=== PATIENT | male | born 1980 | race American Indian/Alaskan Native ===

== ENCOUNTER 2017-05-23 02:57 | Emergency (ER) | payer MEDICARE ==
[2017-05-23] MEDS ORDERED: CATAPRES PO ONE (05:07)
[2017-05-23] MEDS ORDERED: TORADOL IM ONE (05:27)
--- NOTE | 2017-05-23 05:32 | Emergency Department Report ---
ED ENT HPI - General Chief complaint: Dental/Oral Stated complaint: ABSCESS/TOOTHACHE Time Seen by Provider: 05/23/17 05:25 Source: patient Mode of arrival: Ambulatory Limitations: No Limitations - History of Present Illness Initial comments: This is a 37-year-old male nontoxic, well nourished in appearance, no acute signs of distress presents to the ED complaining of right-sided tooth pain 2 days. Patient stated this to pains radiating to his right ear but denies any trauma to the region. Denies hearing loss, ear discharge, stiff neck, headache , nausea, vomiting, facial swelling, fever, chills, chest pain or shortness of breath. Patient denies any allergies. Denies past medical history. Discussed pain as 10 out of 10 that is described as aching. MD complaint: tooth pain -: Gradual, days(s) (2) Severity: mild Severity scale (0 -10): 10 Quality: aching Consistency: constant Improves with: none Worsens with: none Context- Dental: history of dental caries, poor dental care Associated Symptoms: toothache. denies: fever, cough, gum swelling, pain with swallowing, sore throat, tinnitus, hearing loss, discharge from ear, rhinorrhea - Related Data Previous Rx's Medication Instructions Recorded Last Taken Type Amoxicillin/K Clav Tab [Augmentin 1 tab PO Q12HR #20 tab 05/23/17 Unknown Rx 875 mg] Ibuprofen [Motrin 600 MG tab] 600 mg PO Q8H PRN #30 tablet 05/23/17 Unknown Rx traMADol [Ultram] 50 mg PO Q6HR PRN #15 tablet 05/23/17 Unknown Rx Allergies Allergy/AdvReac Type Severity Reaction Status Date / Time No Known Allergies Allergy Verified 05/23/17 05:15 ED Dental HPI - General Chief complaint: Dental/Oral Stated complaint: ABSCESS/TOOTHACHE Time Seen by Provider: 05/23/17 05:25 Source: patient Mode of arrival: Ambulatory Limitations: No Limitations - Related Data Previous Rx's Medication Instructions Recorded Last Taken Type Amoxicillin/K Clav Tab [Augmentin 1 tab PO Q12HR #20 tab 05/23/17 Unknown Rx 875 mg] Ibuprofen [Motrin 600 MG tab] 600 mg PO Q8H PRN #30 tablet 05/23/17 Unknown Rx traMADol [Ultram] 50 mg PO Q6HR PRN #15 tablet 05/23/17 Unknown Rx Allergies Allergy/AdvReac Type Severity Reaction Status Date / Time No Known Allergies Allergy Verified 05/23/17 05:15 ED Review of Systems ROS: Stated complaint: ABSCESS/TOOTHACHE Other details as noted in HPI Constitutional: denies: chills, fever Eyes: denies: eye pain, eye discharge, vision change ENT: dental pain. denies: ear pain, throat pain Respiratory: denies: cough, shortness of breath, wheezing Cardiovascular: denies: chest pain, palpitations Endocrine: no symptoms reported Gastrointestinal: denies: abdominal pain, nausea, diarrhea Genitourinary: denies: urgency, dysuria Musculoskeletal: denies: back pain, joint swelling, arthralgia Skin: denies: rash, lesions Neurological: denies: headache, weakness, paresthesias Psychiatric: denies: anxiety, depression Hematological/Lymphatic: denies: easy bleeding, easy bruising ED Past Medical Hx - Past Medical History Previous Medical History?: No - Surgical History Past Surgical History?: No - Social History Smoking Status: Current Every Day Smoker Substance Use Type: Alcohol - Medications Home Medications: Home Medications Medication Instructions Recorded Confirmed Last Taken Type Amoxicillin/K Clav Tab [Augmentin 1 tab PO Q12HR #20 tab 05/23/17 Unknown Rx 875 mg] Ibuprofen [Motrin 600 MG tab] 600 mg PO Q8H PRN #30 tablet 05/23/17 Unknown Rx traMADol [Ultram] 50 mg PO Q6HR PRN #15 tablet 05/23/17 Unknown Rx ED Physical Exam - General Limitations: No Limitations General appearance: alert, in no apparent distress - Head Head exam: Present: atraumatic, normocephalic, normal inspection - Eye Eye exam: Present: normal appearance, PERRL, EOMI. Absent: scleral icterus, conjunctival injection, nystagmus, periorbital swelling, periorbital tenderness Pupils: Present: normal accommodation - ENT ENT exam: Present: normal exam, normal orophraynx, mucous membranes moist, TM's normal bilaterally, normal external ear exam - Expanded ENT Exam Expanded Ear exam: Present: normal external inspection Mouth exam: Present: normal external inspection, tongue normal. Absent: drooling, trismus, muffled voice, tongue elevation, laceration Teeth exam: Present: dental caries, fractured tooth #, dental tenderness #, gingival enlargement, other (No facial swelling,. No abscess or swelling ntoed.) 1 - Fractured, Dental Tenderness Throat exam: Positive: normal inspection. Negative: tonsillar erythema, tonsillomegaly, tonsillar exudate, R peritonsillar mass, L peritonsillar mass - Neck Neck exam: Present: normal inspection, full ROM. Absent: tenderness, meningismus, lymphadenopathy, thyromegaly - Respiratory Respiratory exam: Present: normal lung sounds bilaterally. Absent: respiratory distress, wheezes, rales, rhonchi, stridor, chest wall tenderness, accessory muscle use, decreased breath sounds, prolonged expiratory - Cardiovascular Cardiovascular Exam: Present: regular rate, normal rhythm, normal heart sounds. Absent: bradycardia, tachycardia, irregular rhythm, systolic murmur, diastolic murmur, rubs, gallop - GI/Abdominal GI/Abdominal exam: Present: soft, normal bowel sounds. Absent: distended, tenderness, guarding, rebound, rigid, diminished bowel sounds - Rectal Rectal exam: Present: deferred - Extremities Exam Extremities exam: Present: normal inspection, full ROM, normal capillary refill. Absent: tenderness, pedal edema, joint swelling, calf tenderness - Back Exam Back exam: Present: normal inspection, full ROM. Absent: tenderness, CVA tenderness (R), CVA tenderness (L), muscle spasm, paraspinal tenderness, vertebral tenderness, rash noted - Neurological Exam Neurological exam: Present: alert, oriented X3, CN II-XII intact, normal gait, reflexes normal - Psychiatric Psychiatric exam: Present: normal affect, normal mood - Skin Skin exam: Present: warm, dry, intact, normal color. Absent: rash ED Course Vital Signs 05/23/17 05/23/17 05/23/17 03:00 03:04 05:06 Temperature 98.3 F 98.3 F Pulse Rate 80 88 Respiratory 19 18 Rate Blood Pressure 171/112 171/110 Blood Pressure 170/116 [Left] O2 Sat by Pulse 99 100 Oximetry 05/23/17 05:17 Temperature Pulse Rate 88 Respiratory Rate Blood Pressure 170/116 Blood Pressure [Left] O2 Sat by Pulse Oximetry - Reevaluation(s) Reevaluation #1: 05/23/17 05:30 PAtient is speaking in full sentences with no signs of distress. Reevaluation #2: 05/23/17 05:30 Patient received Catapres for high blood pressure. Will reevaluate blood pressure before d/c. Critical care attestation.: If time is entered above; I have spent that time in minutes in the direct care of this critically ill patient, excluding procedure time. ED Disposition Clinical Impression: Gingivitis, Dental caries Hypertension Qualifiers: Hypertension type: unspecified Qualified Code(s): I10 - Essential (primary) hypertension Disposition: TO HOME OR SELFCARE Is pt being admited?: No Does the pt Need Aspirin: No Condition: Stable Instructions: Hypertension (ED), Gingivitis (ED), Dental Caries (ED), Tramadol (By mouth), Amoxicillin/Clavulanate Potassium (By mouth) Additional Instructions: Follow-up with your primary care doctor/dentist in 24 hours for your blood pressure and keep a daily log and presented to your primary care doctor. If symptoms worsen or continue such as facial swelling or any abnormal symptoms return to emergency room as responsible. They're to operate any machinery when he takes Ultram for pain due to sedation/ drowsiness. Prescriptions: Amoxicillin/K Clav Tab [Augmentin 875 mg] 1 tab PO Q12HR #20 tab Ibuprofen [Motrin 600 MG tab] 600 mg PO Q8H PRN #30 tablet PRN Reason: Pain traMADol [Ultram] 50 mg PO Q6HR PRN #15 tablet PRN Reason: Pain Referrals: PRIMARY MD VIC [Primary Care Provider] - 3-5 Days LISA KAISER MD [Staff Physician] - 3-5 Days [facility] [Outside] - 3-5 Days [facility] [Outside] - 3-5 Days Forms: Work/School Release Form(ED)
[2017-05-23 06:25] VITALS: BP 154/92
== END 2017-05-23 06:50 | disposition home or self-care (01) ==
LOC: ED 02:57
DX: K05.10 Chronic gingivitis, plaque induced (principal); I10 Essential (primary) hypertension; F17.210 Nicotine dependence, cigarettes, uncomplicated
CPT/HCPCS: 96372; 99282; J1885

== ENCOUNTER 2021-03-07 21:42 | Emergency (ER) | payer MEDICARE ==
[2021-03-08] MEDS ORDERED: cloNIDine 0.2 MG TAB PO ONE (00:10)
[2021-03-08] MEDS ORDERED: HYDROcodone/ACETAMINOPHEN 5-325 MG TAB PO ONE (00:10)
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
--- NOTE | 2021-03-08 01:05 | Cat Scan Report ---
CT HEAD WITHOUT CONTRAST INDICATION / CLINICAL INFORMATION: Trauma. TECHNIQUE: All CT scans at this location are performed using CT dose reduction for ALARA by means of automated exposure control. COMPARISON: None available. FINDINGS: BRAIN PARENCHYMA: No acute intracranial hemorrhage. No evidence of recent infarct. No mass effect or midline shift. VENTRICULAR SYSTEM/EXTRA-AXIAL SPACES: Ventricles are normal for age. No extra-axial fluid collection . ORBITS: Normal as visualized. SKELETAL SYSTEM/SOFT TISSUES: Normal bones and soft tissues. PARANASAL SINUSES/MASTOID AIR CELLS: No significant abnormality. ADDITIONAL FINDINGS: None. IMPRESSION: 1. No acute intracranial abnormality. Signer Name: Isaiah Chilel MD Signed: 03/08/2021 1:00 AM Workstation Name: [id number]
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
[2021-03-08] MEDS ORDERED: hydrALAZINE 20 MG/1 ML INJ IV ONE ×2 (01:22→01:56)
[2021-03-08 03:35] VITALS: BP 187/116
== END 2021-03-08 03:44 | disposition home or self-care (01) ==
LOC: ED 21:42
DX: M54.2 Cervicalgia (principal); R51.9 Headache, unspecified; M54.5 Low back pain; I10 Essential (primary) hypertension; F17.200 Nicotine dependence, unspecified, uncomplicated; V43.62XA Car passenger injured in collision with other type car in traffic accident, initial encounter; Y93.89 Activity, other specified; Y92.410 Unspecified street and highway as the place of occurrence of the external cause; Y99.8 Other external cause status
CPT/HCPCS: 70450; 72070; 72100; 72125; 96374; 96375; 96376; 99284; J0360

== ENCOUNTER 2021-10-23 22:19 | Emergency (ER) | payer MEDICARE ==
[2021-10-23 23:13] VITALS: BP 185/122
[2021-10-24] MEDS ORDERED: IBUPROFEN 600 MG TAB PO ONE (02:57)
[2021-10-24] MEDS ORDERED: LIDOCAINE-MPF (1%) 10 MG/1 ML VIAL 5 ML INFILTRATI ONE (02:57)
--- NOTE | 2021-10-24 04:35 | Emergency Department Report ---
ED General Adult HPI - General Chief complaint: Skin/Abscess/Foreign Body Stated complaint: BUMP ON NECK Source: patient Mode of arrival: Ambulatory Limitations: No Limitations - History of Present Illness Initial comments: Patient is a 41-year-old -[place] male with a history of hypertension who presents to the ED with complaint of acute onset persistent painful, swoll en, mild erythematous maculopapular rash on left lateral neck for the last 2 weeks, worse in the last 5 days. Patient states that the pain and the swelling as well as the fluctuance got worse in the last 2 days. Patient states that he has not been able to sleep because of worsening pain. Patient denies fever, chills, nausea, vomiting, dizziness, syncope, dysphagia, dysphonia, headache, back pain, traumatic injury, numbness and tingling or weakness of left arm. MD Complaint: left lateral neck painful swollen rash -: Sudden, week(s) (2) Location: neck (Left lateral neck swollen painful rash) Radiation: non-radiation Severity scale (0 -10): 7 Quality: aching, sharp Consistency: constant Improves with: none Worsens with: none Associated Symptoms: rash (Swollen, painful erythematous maculopapular rash on left lateral neck). denies: denies other symptoms, confusion, chest pain, cough, diaphoresis, fever/chills, headaches, loss of appetite, malaise, nausea/vomiting, seizure, shortness of breath, syncope, weakness Treatments Prior to Arrival: none - Related Data Previous Rx's Medication Instructions Recorded Last Taken Type Amoxicillin/K Clav Tab [Augmentin 1 tab PO Q12HR #20 tab 05/23/17 Unknown Rx 875 mg] Ibuprofen [Motrin 600 MG tab] 600 mg PO Q8H PRN #30 tablet 05/23/17 Unknown Rx traMADoL [Ultram] 50 mg PO Q6HR PRN #15 tablet 05/23/17 Unknown Rx Cyclobenzaprine [Flexeril] 10 mg PO TID PRN #12 tablet 03/08/21 Unknown Rx amLODIPine 5 mg PO DAILY #30 tab 03/08/21 Unknown Rx Acetaminophen with Codeine 1 each PO Q6HR PRN #8 tab 10/24/21 Unknown Rx [Acetaminophen-Codeine #2 TAB] Ibuprofen [Motrin] 800 mg PO Q8HR PRN #30 tablet 10/24/21 Unknown Rx Sulfamethoxazole/Trimethoprim 1 each PO Q12H #20 tab 10/24/21 Unknown Rx [Bactrim DS TAB] Allergies Allergy/AdvReac Type Severity Reaction Status Date / Time No Known Allergies Allergy Verified 05/23/17 05:15 ED Review of Systems ROS: Stated complaint: BUMP ON NECK Other details as noted in HPI Constitutional: denies: chills, fever Eyes: denies: eye pain, eye discharge, vision change ENT: denies: ear pain, throat pain Respiratory: denies: cough, shortness of breath, wheezing Cardiovascular: denies: chest pain, palpitations Endocrine: no symptoms reported Gastrointestinal: denies: abdominal pain, nausea, diarrhea Genitourinary: denies: urgency, dysuria Musculoskeletal: other (Painful, swollen, mild erythematous maculopapular rash on left lateral neck). denies: back pain, joint swelling, arthralgia Skin: rash (Swollen, mild erythematous maculopapular rash on left lateral neck). denies: lesions Neurological: denies: headache, weakness, paresthesias Psychiatric: denies: anxiety, depression Hematological/Lymphatic: denies: easy bleeding, easy bruising ED Past Medical Hx - Past Medical History Previous Medical History?: Yes Hx Hypertension: Yes - Surgical History Past Surgical History?: Yes Additional Surgical History: left knee - Social History Smoking Status: Current Every Day Smoker Substance Use Type: None - Medications Home Medications: Home Medications Medication Instructions Recorded Confirmed Last Taken Type Amoxicillin/K Clav Tab [Augmentin 1 tab PO Q12HR #20 tab 05/23/17 Unknown Rx 875 mg] Ibuprofen [Motrin 600 MG tab] 600 mg PO Q8H PRN #30 tablet 05/23/17 Unknown Rx traMADoL [Ultram] 50 mg PO Q6HR PRN #15 tablet 05/23/17 Unknown Rx Cyclobenzaprine [Flexeril] 10 mg PO TID PRN #12 tablet 03/08/21 Unknown Rx amLODIPine 5 mg PO DAILY #30 tab 03/08/21 Unknown Rx Acetaminophen with Codeine 1 each PO Q6HR PRN #8 tab 10/24/21 Unknown Rx [Acetaminophen-Codeine #2 TAB] Ibuprofen [Motrin] 800 mg PO Q8HR PRN #30 tablet 10/24/21 Unknown Rx Sulfamethoxazole/Trimethoprim 1 each PO Q12H #20 tab 10/24/21 Unknown Rx [Bactrim DS TAB] ED Physical Exam - General Limitations: No Limitations General appearance: alert, in no apparent distress - Head Head exam: Present: atraumatic, normocephalic, normal inspection - Eye Eye exam: Present: normal appearance, PERRL, EOMI Pupils: Present: normal accommodation - ENT ENT exam: Present: normal exam, normal orophraynx, mucous membranes moist, TM's normal bilaterally, normal external ear exam - Neck Neck exam: Present: normal inspection, tenderness (Palpable left lateral neck tenderness due to the swelling, mild erythematous maculopapular fluctuant rash), full ROM - Respiratory Respiratory exam: Present: normal lung sounds bilaterally. Absent: respiratory distress, wheezes, rales, rhonchi, stridor, chest wall tenderness, accessory muscle use, prolonged expiratory - Cardiovascular Cardiovascular Exam: Present: regular rate, normal rhythm, normal heart sounds. Absent: systolic murmur, diastolic murmur, rubs, gallop - GI/Abdominal GI/Abdominal exam: Present: soft, normal bowel sounds. Absent: tenderness, guarding, hyperactive bowel sounds, hypoactive bowel sounds, organomegaly, bruit - Extremities Exam Extremities exam: Present: normal inspection, full ROM, normal capillary refill - Back Exam Back exam: Present: normal inspection, full ROM. Absent: tenderness, CVA tenderness (R), CVA tenderness (L), muscle spasm, paraspinal tenderness, vertebral tenderness, rash noted - Neurological Exam Neurological exam: Present: alert, oriented X3, CN II-XII intact, normal gait, reflexes normal - Psychiatric Psychiatric exam: Present: normal affect, normal mood - Skin Skin exam: Present: warm, dry, intact, normal color, rash (Swollen, mildly erythematous maculopapular fluctuant rash with mild tenderness on left lateral neck), erythema ED Course Vital Signs 10/23/21 10/24/21 23:02 03:33 Temperature 98.4 F Pulse Rate 76 Respiratory 17 14 Rate Blood Pressure 185/122 [Right] O2 Sat by Pulse 97 Oximetry - I & D Left Neck Type of Procedure: Simple Site: Left lateral neck Blade Size: 11 I & D Procedure: betadine prep, sterile drapes applied, sterile dressing applied Progress: The area was cleaned extensively and lidocaine 1% solution infiltrated around the fluctuant rash. When anesthesia was fully achieved, a small incision was made and thick purulent discharge drained from the wound. The wound was then extensively debrided and loculations broken. The wound was then debrided with normal saline. Sterile gauze was used to pack the wound and the wound was then dressed appropriately with Tegaderm gauze. Patient tolerated procedure well. ED Medical Decision Making - Medical Decision Making This is a 41-year-old -[place] male with a history of hypertension who presents to the ED with complaint of acute onset persistent painful, swollen, mild erythematous maculopapular rash on left lateral neck for the last 2 weeks, worse in the last 5 days. Patient states that the pain and the swelling as well as the fluctuance got worse in the last 2 days. Patient states that he has not been able to sleep because of worsening pain. In the ED, patient is alert and oriented x3 and is not in any distress but appears to be in pain. Patient was treated for pain in the ED. The area was cleaned extensively and lidocaine 1% solution infiltrated around the fluctuant rash. When anesthesia was fully achieved, a small incision was made and thick purulent discharge drained from the wound. The wound was then extensively debrided and loculations broken. The wound was then debrided with normal saline. Sterile gauze was used to pack the wound and the wound was then dressed appropriately with Tegaderm gauze. Patient tolerated procedure well. Patient was discharged home on pain medications and antibiotics and advised to follow-up with his primary care physician in 7 to 10 days for reevaluation or return to the ED immediately if symptoms get worse. - Differential Diagnosis Folliculitis; cellulitis; cutaneous abscess; lipoma Critical care attestation.: If time is entered above; I have spent that time in minutes in the direct care of this critically ill patient, excluding procedure time. ED Disposition Clinical Impression: Cellulitis and abscess of neck Disposition: 01 HOME / SELF CARE / HOMELESS Is pt being admited?: No Does the pt Need Aspirin: No Condition: Stable Instructions: Incision and Drainage, Care After, Skin Abscess, [id number], Cellulitis, Adult, [id number] Additional Instructions: Take medication with food, drink plenty fluids and follow-up with your primary care physician in 7 to 10 days for reevaluation. Return to the ED immediately if symptoms get worse. Prescriptions: Acetaminophen with Codeine [Acetaminophen-Codeine #2 TAB] 1 each PO Q6HR PRN #8 tab PRN Reason: Pain Sulfamethoxazole/Trimethoprim [Bactrim DS TAB] 1 each PO Q12H #20 tab Ibuprofen [Motrin] 800 mg PO Q8HR PRN #30 tablet PRN Reason: Pain , Severe (7-10) Referrals: [facility] [Provider Group] - 7-10 days Forms: Work/School Release Form(ED) Time of Disposition: 04:39 Print Language: TAJIK
== END 2021-10-24 05:10 | disposition home or self-care (01) ==
LOC: ED 22:19
DX: L03.221 Cellulitis of neck (principal); F17.200 Nicotine dependence, unspecified, uncomplicated; I10 Essential (primary) hypertension
CPT/HCPCS: 10060; 99282; J3490